=== PATIENT | female | born 1970 | race Caucasian/White ===

== ENCOUNTER 2019-08-20 15:25 | Emergency (ER) | payer BC | END 2019-08-20 18:53 | disposition home or self-care (01) | LOC: EDH 15:25 | DX: N63.20 Unspecified lump in the left breast, unspecified quadrant (principal); N63.21 Unspecified lump in the left breast, upper outer quadrant; M89.8X4 Other specified disorders of bone, hand; Z87.891 Personal history of nicotine dependence ==

== ENCOUNTER → 2019-08-22 | Outpatient (CLI) | payer BC, SELFPAY | END | disposition home or self-care (01) | LOC: RAH 08:49 | PROVIDERS: ATTEND Internal Medicine Critical Care Medicine | DX: R92.1 Mammographic calcification found on diagnostic imaging of breast (principal) | CPT/HCPCS: 76641; 77066 ==